=== PATIENT | female | born 1980 | race Caucasian/White ===

== ENCOUNTER 2017-05-08 19:20 | Emergency (ER) | payer OTHER ==
[~2017-05-08] VITALS: Ht 167.6 cm; Wt 74.8 kg
[2017-05-08] MEDS ORDERED: TOPI25 PO (19:40)
[2017-05-08] MEDS ORDERED: BUPR75 PO (19:40)
[2017-05-08] MEDS ORDERED: LAMO25 PO (19:41)
== END 2017-05-08 20:40 | disposition home or self-care (01) ==
LOC: ER 19:20
DX: S61.215A Laceration without foreign body of left ring finger without damage to nail, initial encounter (principal); Z87.891 Personal history of nicotine dependence; Z79.899 Other long term (current) drug therapy; W45.8XXA Other foreign body or object entering through skin, initial encounter
CPT/HCPCS: 12001; 90471; 90714; 99283